=== PATIENT | male | born 1990 | race Caucasian/White ===

== ENCOUNTER → 2016-07-29 21:54 | Emergency (ER) | payer BC ==
[2016-07-29 22:26] VITALS: BP 145/80
== END | disposition left against medical advice (07) ==
LOC: ED 21:54
DX: R10.9 Unspecified abdominal pain (principal); Z53.21 Procedure and treatment not carried out due to patient leaving prior to being seen by health care provider

== ENCOUNTER 2016-08-15 15:01 | Emergency (ER) | payer SELFPAY ==
[2016-08-15 15:52] VITALS: BP 136/70
--- NOTE | 2016-08-15 16:31 | UC ---
Lower Extremity/Ankle HPI - HPI Summary HPI Summary: 26 y/o male presents to the urgent care c/o injury to R ankle. Pt states he was at work today at [employer] and was kicked by child with the child RT heel around 2:10pm, age 6, approx 130lbs, pt states. Pt states when rotates inward, or when putting weight on his Pain is 4/10. Pt applied ice, but no took no pain medication.Patient denies any fever. [ End ] - History of Current Complaint Chief Complaint: UCTrauma Stated Complaint: ANKLE INJURY Time Seen by Provider: 08/15/16 16:11 Onset/Duration: Sudden Onset Severity Initially: Moderate Severity Currently: Mild Pain Intensity: 4 Aggravating Factor(s): Standing Alleviating Factor(s): Rest, Ice Related History: Occupational Injury - Allergies/Home Medications Allergies/Adverse Reactions: Allergies Allergy/AdvReac Type Severity Reaction Status Date / Time Sulfa Drugs Allergy Severe Swelling Verified 08/15/16 15:42 PMH/Surg Hx/FS Hx/Imm Hx Endocrine History Of: Reports: Thyroid Disease Denies: Diabetes, Hyperthyroidism, Hypothyroidism, Dyslipidemia Cardiovascular History Of: Denies: Cardiac Disorders, Hypertension, Pacemaker/ICD, Myocardial Infarction , Congestive Heart Failure, Atrial Fibrillation, Deep Vein Thrombosis, Bleeding Disorders Respiratory History Of: Denies: COPD, Asthma, Bronchitis, Pneumonia, Pulmonary Embolism GI/ History Of: Denies: Gastroesophageal Reflux, Ulcer, Gastrointestinal Bleed, Gall Bladder Disease, Kidney Stones, Diverticulitis, Renal Disease, Urosepsis Neurological History Of: Denies: TIA, CVA, Dementia, Seizures, Migraine Psychological History Of: Denies: Anxiety, Depression, Bipolar Disorder, Schizophrenia, Post Traumatic Stress Disorder Cancer History Of: Denies: Lung Cancer, Colorectal Cancer, Breast Cancer, Prostate Cancer, Cervical Cancer Other History Of: Negative For: HIV, Hepatitis B, Hepatitis C - Surgical History Surgical History: Yes Surgery Procedure, Year, and Place: [facility]STECTOMY-[facility]. RIGHT SHOULDER SURGERY - [facility]. LEFT SHOULDER SURGERY- [facility]. LT WRIST SURGERY - Family History Known Family History: Positive: Renal Disease - Stones in mother. Negative: Cardiac Disease, Hypertension - Social History Alcohol Use: Rare Substance Use Type: None Smoking Status (MU): Never Smoked Tobacco Have You Smoked in the Last Year: No - Immunization History Most Recent Influenza Vaccination: none Most Recent Tetanus Shot: UTD Review of Systems Constitutional: Negative Skin: Bruising - scratch above the dorsal side of the RT ankle Eyes: Negative ENT: Negative Respiratory: Negative Cardiovascular: Negative Gastrointestinal: Negative Genitourinary: Negative Musculoskeletal: Decreased ROM - mild decrease ROM of the RT ankle Neurological: Negative Psychological: Negative All Other Systems Reviewed And Are Negative: Yes Physical Exam Triage Information Reviewed: Yes Appearance: Well-Appearing, No Pain Distress, Well-Nourished Vital Signs: Initial Vital Signs Temp 98.4 F 08/15/16 15:43 Pulse 76 08/15/16 15:43 Resp 18 08/15/16 15:43 BP 136/70 08/15/16 15:43 Pulse Ox 99 08/15/16 15:43 Vital Signs Reviewed: Yes Eye Exam: Normal ENT Exam: Normal Neck exam: Normal Respiratory Exam: Normal Respiratory: Positive: Normal breath sounds Cardiovascular: Positive: RRR, Pulses Normal Abdomen Description: Positive: Nontender, No Organomegaly Musculoskeletal: Positive: Strength Intact, ROM Intact, Other: - RT ankle with a superficial abrasion above the ankle about 5 cm in lenth and 2cm in with. Mild erythema and mild swelling. Mild tenderness on deep palpation. Decrease ROM due to mild pain. pulses intact. positive sensation of foot and good capillary refill. Neurological Exam: Normal Psychological Exam: Normal Skin Exam: Other - as above Lower Extremity Course/Dx - Course Course Of Treatment: Superficial RT ankle abrassion.Worker's compensation report filled out for both patient and facility. Patient advised to take ibuprofen 600mg PO prn, he has at home. To continue placing ice and elevated leg. - Differential Dx/Diagnosis Provider Diagnoses: Superficial skin abrassion above the Rt ankle. Discharge - Discharge Plan Condition: Stable Disposition: HOME Patient Education Materials: Abrasion (ED) Referrals: Cortney Siddiqi MD [Primary Care Provider] - Additional Instructions: please return to the urgent care is pain or swelling increases or unable to ambulate. Take medication for pain and swelling as indicated.
== END 2016-08-15 16:38 | disposition home or self-care (01) ==
LOC: UCEAST 15:01
DX: S90.511A Abrasion, right ankle, initial encounter (principal); X58.XXXA Exposure to other specified factors, initial encounter; E07.9 Disorder of thyroid, unspecified; Z88.2 Allergy status to sulfonamides
CPT/HCPCS: 99211; G0463

== ENCOUNTER 2017-10-09 10:47 | Emergency (ER) | payer BC ==
[2017-10-09 11:02] VITALS: BP 116/70
--- NOTE | 2017-10-09 11:49 | UC ---
Ear Complaint HPI - HPI Summary HPI Summary: 27 y/o male presents to the urgent care c/o left ear pain since Sunday morning . Pt report he had nasal congestion w/ clear discharge last week and then he started to feel his ear pain w/ mild subjective fever. Now pain is radiating to his throat w/ an swollen lymph node that is tender. Pt Took Ibuprofen PO 600mg to alleviate symptoms. He feels fatigue and mild CONTRERAS. Pain is 3/10 now. Pt denies dizziness, SOB, cough. chest pain, abdominal pain, N/V/D. - History of Current Complaint Chief Complaint: UCRespiratory Stated Complaint: SORE THROAT,EAR PAIN Time Seen by Provider: 10/09/17 11:25 Hx Obtained From: Patient Onset/Duration: Gradual Onset, Lasting Days - 3 days, Still Present, Worse Since - last night Severity Initially: Mild Severity Currently: Moderate Pain Intensity: 3 Pain Scale Used: 0-10 Numeric Aggravating Factors: Nothing Alleviating Factors: OTC Meds Associated Signs/Symptoms: Positive: URI Symptoms. Negative: Discharge, Hearing Loss - Allergies/Home Medications Allergies/Adverse Reactions: Allergies Allergy/AdvReac Type Severity Reaction Status Date / Time Sulfa (Sulfonamide Allergy Swelling Verified 07/03/17 13:17 Antibiotics) PMH/Surg Hx/FS Hx/Imm Hx Previously Healthy: Yes Endocrine History: Hypothyroidism - hashimotos thyroditis Other History Of: Negative For: HIV, Hepatitis B, Hepatitis C - Surgical History Surgical History: Yes Surgery Procedure, Year, and Place: [facility]STECTOMY-[facility]. RIGHT SHOULDER SURGERY - [facility]. LEFT SHOULDER SURGERY- [facility]. LT WRIST SURGERY - Family History Known Family History: Positive: Renal Disease - Stones in mother. Negative: Cardiac Disease, Hypertension Family History: Hypothyrodism - Social History Occupation: Employed Full-time Lives: With Family Alcohol Use: Rare Substance Use Type: None Smoking Status (MU): Never Smoked Tobacco Have You Smoked in the Last Year: No - Immunization History Most Recent Influenza Vaccination: none Most Recent Tetanus Shot: UTD Review of Systems Constitutional: Negative Skin: Negative Eyes: Negative ENT: Sore Throat - left side, Ear Ache - left ear pain, Nasal Discharge - clear Respiratory: Negative Cardiovascular: Negative Gastrointestinal: Negative Genitourinary: Negative Motor: Negative Neurovascular: Negative Musculoskeletal: Negative Neurological: Headache Psychological: Negative Is Patient Immunocompromised?: No All Other Systems Reviewed And Are Negative: Yes Physical Exam - Summary Physical Exam Summary: Vital signs: reviewed General: well developed, well nourished male sitting in the examining table w/o any apparent distress Skin: [place], warm and dry, no evidence of atopic dermatitis, psoriasis, seborrhea. HEENT: -Head: atraumatic, non tender; no scalp dermatitis. -Eyes: sclera and conjunctiva clear, PERRLA, EOMI -Ears: no pre- or postauricular lymphadenopathy, positive left anterior cervical lymphadenopathy; LF external ear canal is clear, LF TM injected w/ erythema, no light reflex and yellowis discharge. Rt TM WNL, LF external ear canal clear and LF TM WNL. TMs normal w/out bulging or retraction. Good light reflex. No fluid level,. No perforation. -Nose/Face: erythematous and edematous nasal mucosa with clear rhinorrhea, no frontal or maxillary sinus tender to palpation. -Mouth/Throat: Mucous membrane moist, posterior pharynx clear, no erythema or exudates. Neck: supple, FROM, nontender, no lymphadenopathy, no meningismus. Chest: Clear to auscultation, normal breath sounds Abd: soft, Bowel sounds active, Nontender. Back: no spinal or CVAT Neuro: A&O x4, GCS 15, no focal neuro deficits, normal behavior for age. Triage Information Reviewed: Yes Vital Signs: Initial Vital Signs Temp 98.5 F 10/09/17 10:57 Pulse 52 10/09/17 10:57 Resp 16 10/09/17 10:57 BP 116/70 10/09/17 10:57 Pulse Ox 98 10/09/17 10:57 Ear Complaint Course/Dx - Course Course Of Treatment: 27 y/o male presents to the urgent care c/o left ear pain since Sunday morning 10/07/2017. Pt report he had nasal congestion w/ clear discharge last week and then he started to feel his ear pain w/ mild subjective fever. Now pain is radiating to his throat w/ an swollen lymph node that is tender. Pt Took Ibuprofen PO 600mg to alleviate symptoms. He feels fatigue and mild CONTRERAS. Pain is 3/10 now. Pt denies dizziness, SOB, cough. chest pain, abdominal pain, N/V/D.Hx obtained. Pt w/ left otitis media on examination. Pt Rx Amoxicillin PO. Pt Advised to continue w/ Ibuprofen for otalgia and fever. Also advised if symptoms do not improve or worsen to return to the urgent care or f/u with PCP for further management. Mother understood and agreed with D/C instructions. - Differential Dx/Diagnosis Differential Diagnosis/HQI/PQRI: Cerumen Impaction, Otitis Externa, Perforated TM Provider Diagnoses: 1- Left otitis media. 2- Otalgia Discharge - Sign-Out/Discharge Documenting (check all that apply): Patient Departure - D/c home - Discharge Plan Condition: Stable Disposition: HOME Prescriptions: Amoxicillin PO (*) [Amoxicillin 875 MG (*)] 875 mg PO BID #14 tab Patient Education Materials: Ear Infection (ED) Forms: *Work Release Referrals: Cortney Siddiqi MD [Primary Care Provider] - Additional Instructions: 1- Please take the full course of the antibiotic to avoid resistance. 2-Please take ibuprofen PO q6-8hrs prn as instructed after meals to alleviate pain and swelling. Increase fluid intake, eat well, rest and avoid strenuous exercise 3-If symptoms do not improve or worsen please return to the urgent care or f/u with your PCP 3 days for further evaluation and treatment. - Billing Disposition and Condition Condition: STABLE Disposition: Home
== END 2017-10-09 11:57 | disposition home or self-care (01) ==
LOC: UCEAST 10:47
DX: H66.92 Otitis media, unspecified, left ear (principal); H92.02 Otalgia, left ear; R09.81 Nasal congestion; Z88.2 Allergy status to sulfonamides
CPT/HCPCS: 99212; G0463

== ENCOUNTER 2018-05-27 13:35 | Emergency (ER) | payer BC ==
[2018-05-27 14:15] VITALS: BP 135/78
--- NOTE | 2018-05-27 14:19 | UC ---
Skin Complaint HPI - HPI Summary HPI Summary: 27 y/o male presents to the urgent care c/o intermittent painful lump in the left axilla for the past 2 weeks. Pt reports it has worsen for the past 2 days now with a red rash around it. He has applied warm compresses. Pain is 5/10, at touch. He denies any drainage and fever. Also denies Hx of MRSA. Pt can move his left shoulder w/o any difficulty. Pt denies SOB, chest pain, palpitations, abdominal pain, N/V/D. Pt Has been healthy. - History of Current Complaint Chief Complaint: UCSkin Time Seen by Provider: 05/27/18 14:17 Stated Complaint: UNDER ARM PAIN Hx Obtained From: Patient Onset/Duration: Gradual Onset, Lasting Weeks - 2 weeks, Still Present, Worse Since - 2 days Skin Exposure Onset/Duration: Days Ago - 14 days Timing: Constant Onset Severity: Mild Current Severity: Moderate Pain Intensity: 5 Pain Scale Used: 0-10 Numeric Location: Discrete - left axilla w/ with a red rash around Character: Swelling, Redness, Raised, Painful Aggravating Factor(s): Touch Alleviating Factor(s): Heat, OTC Meds Associated Signs & Symptoms: Positive: Rash - left axilla painful lump, Tenderness. Negative: Numbness, Fever, Chills, Drainage - Allergy/Home Medications Allergies/Adverse Reactions: Allergies Allergy/AdvReac Type Severity Reaction Status Date / Time Sulfa (Sulfonamide Allergy Swelling Verified 05/27/18 14:10 Antibiotics) PMH/Surg Hx/FS Hx/Imm Hx Previously Healthy: Yes - Pt denies PMHX Other History Of: Negative For: HIV, Hepatitis B, Hepatitis C - Surgical History Surgical History: Yes Surgery Procedure, Year, and Place: [facility]STECTOMY-[facility]. RIGHT SHOULDER SURGERY - [facility]. LEFT SHOULDER SURGERY- [facility]. LT WRIST SURGERY - Family History Known Family History: Positive: Hypertension, Renal Disease - Stones in mother. Negative: Cardiac Disease Family History: Hypothyrodism - Social History Occupation: Employed Full-time Lives: With Family Alcohol Use: Rare Substance Use Type: None Smoking Status (MU): Never Smoked Tobacco Have You Smoked in the Last Year: No - Immunization History Most Recent Influenza Vaccination: none Most Recent Tetanus Shot: UTD Review of Systems All Other Systems Reviewed And Are Negative: Yes Constitutional: Positive: Negative Skin: Positive: Other - painful lump in the left axilla for the past 2 weeks Eyes: Positive: Negative ENT: Positive: Negative Respiratory: Positive: Negative Cardiovascular: Positive: Negative Gastrointestinal: Positive: Negative Genitourinary: Positive: Negative Motor: Positive: Negative Neurovascular: Positive: Negative Musculoskeletal: Positive: Negative Neurological: Positive: Negative Psychological: Positive: Negative Is Patient Immunocompromised?: No Physical Exam - Summary Physical Exam Summary: Vital Signs Reviewed: Yes General: well developed, well nourished male sitting in the examining table w/o any apparent distress Eye Exam: Normal Eyes: Positive: Conjunctiva Clear - PERRLA, EOMI, fundi grossly normal ENT: Positive: Normal ENT inspection, Hearing grossly normal, Pharynx normal, TMs normal Neck: Positive: Supple, Nontender, No Lymphadenopathy Respiratory: Positive: Chest non-tender, Lungs clear, Normal breath sounds, No respiratory distress Cardiovascular: Positive: RRR, No Murmur, Pulses Normal, Brisk Capillary Refill Abdomen Description: Positive: Nontender, No Organomegaly, Soft. Negative: CVA Tenderness (R), CVA Tenderness (L) Bowel Sounds: Positive: Present Musculoskeletal: Positive: Strength Intact, ROM Intact, No Edema Neurological: Positive: Alert, Muscle Tone Normal Psychological Exam: Normal Skin: Positive: Left axilla with a small erythematous pustule that is indurated and fluctuant, tender to palpation, swollen, and warm to touch about 2.0 x 2.0cm in size. FROM of phalanx, sensation is intact, capillary refill WNL , reflexes WNL Triage Information Reviewed: Yes Vital Signs: Initial Vital Signs Temp 98.9 F 05/27/18 14:10 Pulse 71 05/27/18 14:10 Resp 16 05/27/18 14:10 BP 135/78 05/27/18 14:10 Pulse Ox 98 05/27/18 14:10 Course/Dx - Course Course Of Treatment: 27 y/o male presents to the urgent care c/o intermittent painful lump in the left axilla for the past 2 weeks. Pt reports it has worsen for the past 2 days now with a red rash around it. He has applied warm compresses. Pain is 5/10, at touch. He denies any drainage and fever. Also denies Hx of MRSA. Pt can move his left shoulder w/o any difficulty. Pt denies SOB, chest pain, palpitations, abdominal pain, N/V/D. Pt Has been healthy. Pt w / a left axillary abscess about 2.0 x 2.0 cm in size, no drainage observed on examination. I&D of abscess procedure:The procedure was explained and consent obtained. [place] protocol performed. The wound was anesthetized with 3mL of [place] 1% with good anesthesia. Sterile drape and prep were done. The fluctuant center was incised with #11 blade scalpel. A moderate amount of bloody and yellowish material was expressed . wound cultures obtained and sent to lab top r/o MRSA. The wound was probed for loculated areas and irrigated with normal saline. The wound was packed loosely with wick or left open. Bacitracin topical ointment applied and wound covered with sterile dressing. The patient tolerated the procedure well. Pt Rx Keflex PO and Bacitrain oint. Advised to take ibuprofen PO for pain. Advised to return to the urgent care for wound check up. Pt advised fever develops and pain increase despite ABX to go immediately to the ER for further management. Pt understood and agreed with D/C instructions. Left the clinic ambulating A&OX3. - Differential Diagnoses - Skin Complaint Differential Diagnoses: Abscess, Contact Dermatitis, Local Allergic Reaction, MRSA, Tinea - Diagnoses Provider Diagnosis: Abscess of left axilla Discharge - Sign-Out/Discharge Documenting (check all that apply): Patient Departure - D/C home All imaging exams completed and their final reports reviewed: No Studies - Discharge Plan Condition: Stable Disposition: HOME Prescriptions: Bacitracin OINTMENT* 1 applic TOPICAL BID #1 tube Cephalexin CAP* [Keflex CAP*] 500 mg PO QID #28 cap Patient Education Materials: Abscess (ED) Forms: *Work Release Referrals: Cortney Siddiqi MD [Primary Care Provider] - Additional Instructions: 1-Please take full course of antibiotic to avoid resistance. Keep wound clean and dry with a sterile dressing. Apply bacitracin topical as directed 2- F/u wound check up in 2 days with your PCP or at the urgent care for removal of packing. 3-. Take Ibuprofen PO q6-8hrs prn after meals for pain or swelling. 4-If you develop fever or redness despite antibiotic please go to the ER immediately or return to the Urgent care. 5- Wound culture sent to lab, if any abnormal result you will receive a call from us. - Billing Disposition and Condition Condition: STABLE Disposition: Home
[2018-05-27] MEDS ORDERED: Lidocaine 1%* 5 ML VIAL INJ ONE (14:30)
== END 2018-05-27 15:32 | disposition home or self-care (01) ==
LOC: UCEAST 13:35
DX: L02.412 Cutaneous abscess of left axilla (principal); Z86.14 Personal history of Methicillin resistant Staphylococcus aureus infection
CPT/HCPCS: 10060; 87070; 87077; 87186; 87205; 87640; 87641; 99212; G0463

== ENCOUNTER 2018-05-29 14:54 | Emergency (ER) | payer BC ==
[2018-05-29 15:07] VITALS: BP 147/86
--- NOTE | 2018-05-29 16:35 | ED ---
Skin Complaint - HPI Summary HPI Summary: 27 yo WM here for left axilla abscess wound check and packing removal. No f/c/ pain - History of Current Complaint Chief Complaint: UCSkin Time Seen by Provider: 05/29/18 15:16 Stated Complaint: CHANGE DRESSING Hx Obtained From: Patient Onset/Duration: Started Days Ago Timing: Constant Onset Severity: Moderate Current Severity: Moderate Pain Intensity: 0 - Allergy/Home Medications Allergies/Adverse Reactions: Allergies Allergy/AdvReac Type Severity Reaction Status Date / Time Sulfa (Sulfonamide Allergy Swelling Verified 05/29/18 15:08 Antibiotics) PMH/Surg Hx/FS Hx/Imm Hx Endocrine/Hematology History: Reports: Hx Thyroid Disease Denies: Hx Diabetes Cardiovascular History: Denies: Hx Congestive Heart Failure, Hx Deep Vein Thrombosis, Hx Hypertension , Hx Myocardial Infarction, Hx Pacemaker/ICD, Other Cardiovascular Problems/ Disorders Respiratory History: Denies: Hx Asthma, Hx Chronic Obstructive Pulmonary Disease (COPD), Hx Lung Cancer, Hx Pneumonia, Hx Pulmonary Embolism, Other Respiratory Problems/ Disorders GI History: Denies: Hx Gall Bladder Disease, Hx Gastrointestinal Bleed, Hx Ulcer, Hx Urosepsis History: Denies: Hx Kidney Stones, Hx Renal Disease Sensory History: Reports: Hx Contacts or Glasses - INSTRUCTS GIVEN Denies: Hx Hearing Aid Opthamlomology History: Reports: Hx Contacts or Glasses - INSTRUCTS GIVEN Neurological History: Denies: Hx Dementia, Hx Migraine, Hx Seizures, Hx Transient Ischemic Attacks (TIA) Psychiatric History: Denies: Hx Anxiety, Hx Depression, Hx Schizophrenia, Hx Bipolar Disorder - Surgical History Surgery Procedure, Year, and Place: [facility]ST[facility]OMY-[facility]. RIGHT [facility]OULD[facility] SURGERY - [facility]. LEFT SHOULDER SURGERY- [facility]. LT WRIST SURGERY Hx Anesthesia Reactions: No - Immunization History Date of Tetanus Vaccine: Up to date Date of Influenza Vaccine: 2012 Infectious Disease History: No Infectious Disease History: Denies: Hx Clostridium Difficile, Hx Hepatitis, Hx Human Immunodeficiency Virus (HIV), Hx of Known/Suspected MRSA, Hx Shingles, Hx Tuberculosis, Hx Known/ Suspected VRE, Hx Known/Suspected VRSA, History Other Infectious Disease, Traveled Outside the [place] in Last 30 Days - Family History Known Family History: Positive: Hypertension, Renal Disease - Stones in mother. Negative: Cardiac Disease Family History: Hypothyrodism - Social History Alcohol Use: Rare Substance Use Type: Reports: None Hx Tobacco Use: No Smoking Status (MU): Never Smoked Tobacco Have You Smoked in the Last Year: No Review of Systems Constitutional: Negative Eyes: Negative ENT: Negative Cardiovascular: Negative Respiratory: Negative Gastrointestinal: Negative Musculoskeletal: Negative Positive: Other - left axilla abscess Psychological: Normal All Other Systems Reviewed And Are Negative: Yes Physical Exam - Summary Physical Exam Summary: Vital Signs Reviewed: Yes Skin: Positive: Warm Head/Face: Positive: Normal Head/Face Inspection Eyes: Positive: Normal ENT: Positive: Normal ENT inspection Neck: Positive: Supple Respiratory/Lung Sounds: Positive: Clear to Auscultation Cardiovascular: Positive: Normal, RRR, S1, S2 Abdomen Description: Positive: Nontender Musculoskeletal: Positive: Normal Neurological: Positive: Normal Psychiatric: Positive: Normal, Affect/Mood Appropriate Triage Information Reviewed: Yes Vital Signs On Initial Exam: Initial Vitals Temp Pulse Resp BP Pulse Ox 36.4 C 73 18 147/86 97 05/29/18 15:06 05/29/18 15:06 05/29/18 15:06 05/29/18 15:06 05/29/18 15:06 Skin: Positive: Warm, Other - skin- abscess draining well, decompressed swelling Diagnostics - Vital Signs Vital Signs Temp Pulse Resp BP Pulse Ox 05/29/18 15:06 36.4 C 73 18 147/86 97 - Laboratory Lab Statement: Any lab studies that have been ordered have been reviewed, and results considered in the medical decision making process. Course/Dx - Course Assessment/Plan: left axillary abscess- packing removed, healing and draining well, woundcare instructions given, wash with soap and water RTC if swelling, redness or tenderness increases. - Diagnoses Provider Diagnoses: Abscess of axilla, left, Wound check, abscess Discharge - Sign-Out/Discharge Documenting (check all that apply): Patient Departure All imaging exams completed and their final reports reviewed: No Studies - Discharge Plan Condition: Stable Disposition: HOME Patient Education Materials: Abscess (ED) Referrals: Cortney Siddiqi MD [Primary Care Provider] - - Billing Disposition and Condition Condition: STABLE Disposition: Home
== END 2018-05-29 16:50 | disposition home or self-care (01) ==
LOC: UCEAST 14:54
DX: Z48.00 Encounter for change or removal of nonsurgical wound dressing (principal); L02.412 Cutaneous abscess of left axilla
CPT/HCPCS: 99211; G0463

== ENCOUNTER 2018-07-22 11:06 | Emergency (ER) | payer OTHER ==
[2018-07-22 12:06] VITALS: BP 142/86
[2018-07-22] MEDS ORDERED: Tenofovir/Emtricitab 200/300 * TAB PO ONE ×2 (12:55→13:17)
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
[2018-07-22] MEDS ORDERED: Raltegravir* 400 MG TAB PO ONE ×3 (12:58→13:26)
[2018-07-22] MEDS ORDERED: Tetan/Diph/Pertus SYR(Tdap)* 0.5 ML SYR(BOOSTRIX) use SYR IM ONE (13:05)
[2018-07-22 20:44] LABS: Hematocrit 44 % (36-46); Hemoglobin 15.4 g/dL (14.0-18.0); Mean Corpuscular HGB Conc 35 g/dL (31-36); Mean Corpuscular Hemoglobin 30 pg (27-31); Mean Corpuscular Volume 87 fL (80-94); Mean Platelet Volume 8.5 fL (7.4-10.4); Platelet Count 351 10^3/uL (150-450); Red Blood Count 5.09 10^6 /uL (4.18-5.48); Red Cell Distribution Width 13 % (10.5-15); White Blood Count 8.7 10^3/uL (3.5-10.8)
[2018-07-22 20:54] LABS: Albumin 4.8 g/dL (3.2-5.2); Albumin/Globulin Ratio 1.6 (1-3); BUN/Creatinine Ratio 15.5 (8-20); Calcium 9.4 mg/dL (8.6-10.3); EGFR African American 129.8 (>60); EGFR Non-African American 107.3 (>60); Potassium 4.2 mmol/L (3.5-5.0); Total Bilirubin 0.5 mg/dL (0.2-1.0); Total Protein 7.8 g/dL (6.4-8.9)
[2018-07-23 12:59] LABS: Hepatitis C Antibody Nonreactive (Nonreactive)
[2018-07-24 10:02] LABS: Hepatitis B Surface Antigen Nonreactive (Nonreactive)
== END 2018-07-22 14:01 | disposition home or self-care (01) ==
LOC: UCEAST 11:06
DX: S51.832A Puncture wound without foreign body of left forearm, initial encounter (principal); S51.831A Puncture wound without foreign body of right forearm, initial encounter; S60.512A Abrasion of left hand, initial encounter; S60.511A Abrasion of right hand, initial encounter; S50.12XA Contusion of left forearm, initial encounter; Y04.1XXA Assault by human bite, initial encounter; Y92.9 Unspecified place or not applicable; Y99.0 Civilian activity done for income or pay; Z23 Encounter for immunization; Z88.2 Allergy status to sulfonamides
CPT/HCPCS: 36415; 80053; 80074; 85027; 86703; 90472; 90715; 99213; G0463

== ENCOUNTER 2019-01-29 10:49 | Emergency (ER) | payer OTHER ==
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
[2019-01-29 11:13] VITALS: BP 123/78
== END 2019-01-29 11:54 | disposition home or self-care (01) ==
LOC: UCEAST 10:49
DX: S69.92XA Unspecified injury of left wrist, hand and finger(s), initial encounter (principal); Z88.2 Allergy status to sulfonamides; W50.2XXA Accidental twist by another person, initial encounter; Y92.9 Unspecified place or not applicable
CPT/HCPCS: 99211; G0463

== ENCOUNTER 2019-04-21 11:51 | Emergency (ER) | payer BC, OTHER ==
[2019-04-21 12:52] LABS: ABS Eosinophils 0.3 10^3/ul (0-0.6); ABS Lymphocytes 1.7 10^3/ul (1.0-4.8); ABS Monocytes 0.6 10^3/ul (0-0.8); ABS Neutrophils 3.5 10^3/ul (1.5-7.7); Eosinophil % 4.7 %; Hematocrit 42 % (42-52); Hemoglobin 14.8 g/dL (14.0-18.0); Lymphocyte % 28.3 %; Mean Corpuscular HGB Conc 35 g/dL (31-36); Mean Corpuscular Hemoglobin 31 pg (27-31); Mean Corpuscular Volume 87 fL (80-94); Mean Platelet Volume 7.8 fL (7.4-10.4); Platelet Count 274 10^3/uL (150-450); Red Cell Distribution Width 13 % (10-15); White Blood Count 6.1 10^3/uL (3.5-10.8)
[2019-04-21 13:08] LABS: Potassium 4.2 mmol/L (3.5-5.0)
[2019-04-21 13:09] LABS: Albumin 4.5 g/dL (3.2-5.2); Albumin/Globulin Ratio 1.5 (1-3); BUN/Creatinine Ratio 17.2 (8-20); EGFR African American 124.7 (>60); Globulin 3.1 g/dL (2-4); Total Bilirubin 0.5 mg/dL (0.2-1.0); Total Protein 7.6 g/dL (6.4-8.9)
--- NOTE | 2019-04-21 16:28 | ED ---
HPI Chest Pain - HPI Summary HPI Summary: Patient complains of recurrent chest pain 2 years, with most recent episode lasting intermittently over 3 days with frequent palpitations. States one episode of mild SOB when pain was at worst. Pain rated 4/10 at worst. 2/10 currently. Symptoms are related to eating or exertion. Random onset. Last couple minutes at a time. Diffuse chest pain. Patient has been evaluated by sports medicine doctor Antonio at [facility] with no formal diagnosis. Denies fever, cough, sore throat, N/V/D, abdominal pain, change in urine, change in BM. History of Tamiko. - History of Current Complaint Chief Complaint: EDDysrhythmPalp Time Seen by Provider: 04/21/19 15:44 Hx Obtained From: Patient Onset/Duration: Started Days Ago Timing: Intermittent, Lasting Minutes Initial Severity: Moderate Current Severity: Mild Pain Intensity: 2 Pain Scale Used: 0-10 Numeric - Allergy/Home Medications Allergies/Adverse Reactions: Allergies Allergy/AdvReac Type Severity Reaction Status Date / Time Sulfa (Sulfonamide Allergy Swelling Verified 04/21/19 12:03 Antibiotics) PMH/Surg Hx/FS Hx/Imm Hx Endocrine/Hematology History: Reports: Hx Thyroid Disease Denies: Hx Diabetes Cardiovascular History: Denies: Hx Congestive Heart Failure, Hx Deep Vein Thrombosis, Hx Hypertension , Hx Myocardial Infarction, Hx Pacemaker/ICD, Other Cardiovascular Problems/ Disorders Respiratory History: Denies: Hx Asthma, Hx Chronic Obstructive Pulmonary Disease (COPD), Hx Lung Cancer, Hx Pneumonia, Hx Pulmonary Embolism, Other Respiratory Problems/ Disorders GI History: Denies: Hx Gall Bladder Disease, Hx Gastrointestinal Bleed, Hx Ulcer, Hx Urosepsis History: Denies: Hx Kidney Stones, Hx Renal Disease Sensory History: Reports: Hx Contacts or Glasses - INSTRUCTS GIVEN Denies: Hx Hearing Aid Opthamlomology History: Reports: Hx Contacts or Glasses - INSTRUCTS GIVEN Neurological History: Denies: Hx Dementia, Hx Migraine, Hx Seizures, Hx Transient Ischemic Attacks (TIA) Psychiatric History: Denies: Hx Anxiety, Hx Depression, Hx Schizophrenia, Hx Bipolar Disorder - Surgical History Surgery Procedure, Year, and Place: [facility]STECTOMY-[facility]. RIGHT SHOULD[facility] SURGERY - [facility]. LEFT SHOULDER SURGERY- [facility]. LT WRIST SURGERY Hx Anesthesia Reactions: No - Immunization History Date of Tetanus Vaccine: Up to date Date of Influenza Vaccine: 2012 Infectious Disease History: No Infectious Disease History: Denies: Hx Clostridium Difficile, Hx Hepatitis, Hx Human Immunodeficiency Virus (HIV), Hx of Known/Suspected MRSA, Hx Shingles, Hx Tuberculosis, Hx Known/ Suspected VRE, Hx Known/Suspected VRSA, History Other Infectious Disease, Traveled Outside the [place] in Last 30 Days - Family History Known Family History: Positive: Hypertension, Renal Disease - Stones in mother. Negative: Cardiac Disease Family History: Hypothyrodism - Social History Alcohol Use: Occasionally Substance Use Type: Reports: None Hx Tobacco Use: No Smoking Status (MU): Never Smoked Tobacco Have You Smoked in the Last Year: No Review of Systems Constitutional: Negative Eyes: Negative ENT: Negative Positive: Chest Pain Positive: Shortness Of Breath Gastrointestinal: Negative Genitourinary: Negative Musculoskeletal: Negative Skin: Negative Neurological: Negative Psychological: Normal All Other Systems Reviewed And Are Negative: Yes Physical Exam - Summary Physical Exam Summary: Chest pain not reproducible. Triage Information Reviewed: Yes Vital Signs On Initial Exam: Initial Vitals Temp Pulse Resp BP Pulse Ox 98.2 F 48 16 134/73 99 04/21/19 11:53 04/21/19 11:53 04/21/19 11:53 04/21/19 11:53 04/21/19 11:53 Vital Signs Reviewed: Yes Appearance: Positive: Well-Appearing Skin: Positive: Warm Head/Face: Positive: Normal Head/Face Inspection Eyes: Positive: Normal Neck: Positive: Supple Respiratory/Lung Sounds: Positive: Clear to Auscultation Cardiovascular: Positive: Normal Abdomen Description: Positive: Nontender Musculoskeletal: Positive: Normal Neurological: Positive: Normal Psychiatric: Positive: Normal AVPU Assessment: Alert - Palmer Coma Scale Best Eye Response: 4 - Spontaneous Best Motor Response: 6 - Obeys Commands Best Verbal Response: 5 - Oriented Coma Scale Total: 15 Procedures - Sedation Patient Received Moderate/Deep Sedation with Procedure: No Diagnostics - Vital Signs Vital Signs Temp Pulse Resp BP Pulse Ox 04/21/19 14:56 97.8 F 48 19 136/66 99 04/21/19 13:05 98.3 F 51 18 151/80 98 04/21/19 11:53 98.2 F 48 16 134/73 99 - Laboratory Lab Results: Lab Results 04/21/19 04/21/19 Range/Units 12:39 12:39 WBC 6.1 (3.5-10.8) 10^3/uL RBC 4.80 (4.18-5.48) 10^6 /uL Hgb 14.8 (14.0-18.0) g/dL Hct 42 (42-52) % MCV 87 (80-94) fL MCH 31 (27-31) pg MCHC 35 (31-36) g/dL RDW 13 (10-15) % Plt Count 274 (150-450) 10^3/uL MPV 7.8 (7.4-10.4) fL Neut % (Auto) 56.9 % Lymph % (Auto) 28.3 % [place] % (Auto) 9.8 % Eos % (Auto) 4.7 % Baso % (Auto) 0.3 % Absolute Neuts (auto) 3.5 (1.5-7.7) 10^3/ul Absolute Lymphs (auto) 1.7 (1.0-4.8) 10^3/ul Absolute Monos (auto) 0.6 (0-0.8) 10^3/ul Absolute Eos (auto) 0.3 (0-0.6) 10^3/ul Absolute Basos (auto) 0.0 (0-0.2) 10^3/ul Absolute Nucleated RBC 0.0 10^3/ul Nucleated RBC % 0.0 Sodium 137 (135-145) mmol/L Potassium 4.2 (3.5-5.0) mmol/L Chloride 105 (101-111) mmol/L Carbon Dioxide 27 (22-32) mmol/L Anion Gap 5 (2-11) mmol/L BUN 15 (6-24) mg/dL Creatinine 0.87 (0.67-1.17) mg/dL Est GFR ( Amer) 124.7 (>60) Est GFR (Non-Af Amer) 103.0 (>60) BUN/Creatinine Ratio 17.2 (8-20) Glucose 83 (70-100) mg/dL Calcium 9.0 (8.6-10.3) mg/dL Total Bilirubin 0.50 (0.2-1.0) mg/dL AST 18 (13-39) U/L ALT 29 (7-52) U/L Alkaline Phosphatase 81 (34-104) U/L Troponin I 0.00 (<0.03) ng/mL Total Protein 7.6 (6.4-8.9) g/dL Albumin 4.5 (3.2-5.2) g/dL Globulin 3.1 (2-4) g/dL Albumin/Globulin Ratio 1.5 (1-3) Result Diagrams: 04/21/19 12:39 04/21/19 12:39 Lab Statement: Any lab studies that have been ordered have been reviewed, and results considered in the medical decision making process. Chest Pain Course/Dx - Course Course Of Treatment: Patient complains of recurrent chest pain 2 years, with most recent episode lasting intermittently over 3 days with frequent palpitations. States one episode of mild SOB when pain was at worst. Pain rated 4/10 at worst. 2/10 currently. Symptoms are related to eating or exertion. Random onset. Last couple minutes at a time. Diffuse chest pain. Patient has been evaluated by sports medicine doctor Antonio at [facility] with no formal diagnosis. Denies fever, cough, sore throat, N/V/D, abdominal pain, change in urine, change in BM. History of Tamiko. Vital signs within normal limits. Labs unremarkable. Chest x-ray unremarkable. EKG sinus arrhythmia, heart rate 53. Same as prior except for new T-wave inversion in V1. - Diagnoses Provider Diagnoses: Chest pain Discharge ED - Sign-Out/Discharge Documenting (check all that apply): Patient Departure - Discharge Plan Condition: Stable Disposition: HOME Patient Education Materials: Chest Pain (ED) Forms: *Work Release Referrals: Mei Moise DO [Primary Care Provider] - Rashid Mooney DO [Medical Doctor] - Additional Instructions: Follow-up with primary care and cardiology Dr. Mooney for further evaluation with a possible Holter monitor. Return to the ED for any new or worsening symptoms. - Billing Disposition and Condition Condition: STABLE Disposition: Home
[2019-04-21 16:37] VITALS: BP 131/64
== END 2019-04-21 16:35 | disposition home or self-care (01) ==
LOC: ED 11:51
DX: R07.9 Chest pain, unspecified (principal); E07.9 Disorder of thyroid, unspecified; Z90.49 Acquired absence of other specified parts of digestive tract; Z88.2 Allergy status to sulfonamides
CPT/HCPCS: 36415; 71046; 80053; 84484; 85025; 93005; 99282